=== PATIENT | female | born 1980 | race Caucasian/White ===

== ENCOUNTER → 2024-07-21 | Outpatient (CLI) | payer BC ==
[~2024-07-21] MED LIST: DIPATR PO; PROM25 PO
== END | disposition home or self-care (01) ==
LOC: LAB 07:35 → LAB SHORT 07:35
DX: N72 Inflammatory disease of cervix uteri (principal); N87.9 Dysplasia of cervix uteri, unspecified
CPT/HCPCS: 88305

== ENCOUNTER 2024-08-28 06:00 | Day surgery (SDC) | payer BC ==
[~2024-08-28] VITALS: Ht 165.1 cm; Wt 62.6 kg
[2024-08-28] VITALS (17 sets, daily range): BP systolic 111–134; BP diastolic 64–82
[~2024-08-28 06:00] MED LIST changes: +DIPH50 PO; +FLUO10 PO; +Flonase 0.05% N16 GM; +IBUP200 PO; +MULTI-VITAMIN1 EAC2 PO; +OZEMPIC0.25 MG/02 SQ
[2024-08-28] MEDS ORDERED: CeFAZolin Sodium 2,000 MG in NS 100 ML IV SCH (06:20)
[2024-08-28] MEDS ORDERED: Lactated Ringer's 1,000 ML IV SCH ×2 (06:20→17:30)
--- NOTE | 2024-08-28 06:41 | NUR ---
Ambulatory in Day Surgery History, Chart, Medications and Allergies reviewed before start of procedure. Pre-Op teaching done. Pt verbalizes understanding.
[2024-08-28] MEDS ORDERED: CeFAZolin Sodium 2,000 MG VIAL ONE (06:53)
[2024-08-28] MEDS ORDERED: Bupivacaine 0.5% HCl 5 MG/ML 30MLVIAL ONE (07:02)
[2024-08-28] MEDS ORDERED: Scopolamine Hydrobromide Patch TD SCH (07:10)
[2024-08-28] MEDS ORDERED: Midazolam HCl 1MG / ML 2ML Vial IV SCH (07:20)
[2024-08-28] MEDS ORDERED: Midazolam HCl 1MG / ML 2ML Vial ONE (07:21)
[2024-08-28] MEDS ORDERED: FentaNYL Citrate 50 MCG/ML 2 ML Injection ONE ×3 (07:23→10:29)
[2024-08-28] MEDS ORDERED: Lidocaine HCl 2% 20 ML MDV ONE (07:23)
[2024-08-28] MEDS ORDERED: propofoL 20 ML IV ONE ×2 (07:23→09:43)
[2024-08-28] MEDS ORDERED: Phenylephrine HCl 100 MCG/ML-NS 10MLSYR (1MG/10ML) ONE (07:40)
[2024-08-28] MEDS ORDERED: Rocuronium Bromide 10 MG/ML 5ML Injection IV ONE (08:08)
[2024-08-28] MEDS ORDERED: Ondansetron HCl 2 MG / ML 2ML Vial ONE (08:08)
[2024-08-28] MEDS ORDERED: Dexamethasone Sod Phos 10 MG/ML 1ML VIAL ONE (08:08)
[2024-08-28] MEDS ORDERED: Ketorolac Tromethamine 30mg Vial ONE (09:18)
[2024-08-28] MEDS ORDERED: Sugammadex Sodium 200 MG/2ML SDV (100 MG/ML) ONE (09:43)
[2024-08-28] MEDS ORDERED: HYDROmorphone HCl/Pf 1MG SYR IV PRN (10:00)
[2024-08-28] MEDS ORDERED: FentaNYL Citrate 50 MCG/ML 2 ML Injection IV PRN ×3 (10:00→10:30)
--- NOTE | 2024-08-28 10:02 | NUR ---
08/28/24 1002 Stone,Vianca WESLEY REMOVED END OF CASE 250ML CLEAR URINE, TOLERATED WELL
[2024-08-28] MEDS ORDERED: Droperidol 5 mg/2 ml Vial IV PRN (10:05)
[2024-08-28] MEDS ORDERED: Acetaminophen 500 MG Tab PO PRN ×2 (10:05→10:30)
[2024-08-28] MEDS ORDERED: HYDROmorphone HCl 0.5 MG/0.5 ML SYR IV PRN (10:05)
[2024-08-28] MEDS ORDERED: Ketorolac Tromethamine 30mg Vial IV PRN (10:25)
[2024-08-28] MEDS ORDERED: OxyCODONE HCL 5 MG TAB PO PRN ×2 (10:25→10:35)
[2024-08-28] MEDS ORDERED: FLU VACC TS2024-25(6MOS UP)/PF 45 MCG/0.5 ML SYRINGE IM SCH (10:30)
[2024-08-28] MEDS ORDERED: DiphenhydrAMINE HCL 25 MG Cap PO PRN (10:30)
[2024-08-28] MEDS ORDERED: Metoclopramide HCl 10 MG Tab PO PRN (10:30)
[2024-08-28] MEDS ORDERED: Simethicone 80 MG Chew PO PRN (10:30)
[2024-08-28] MEDS ORDERED: Ondansetron HCl 2 MG / ML 2ML Vial IV PRN (10:30)
[2024-08-28] MEDS ORDERED: Phenazopyridine HCl 100 MG Tab PO ONE (10:35)
--- NOTE | 2024-08-28 11:16 | NUR ---
PT ARRIVED TO THE ROOM FROM PACU AT APPROXIMATELY 1102. PT ALERT/ORIENTED UPON ARRIVAL. PAIN MANAGED. PT REPORTS CONTINUED URGE TO VOID. PT ASSISTED TO THE BATHROOM.
[2024-08-28] MEDS ORDERED: TraMADol HCl 50 MG Tab PO PRN (13:20)
[2024-08-28] MEDS ORDERED: Metoclopramide HCl 5MG / ML 2ML Vial IV PRN (13:20)
--- NOTE | 2024-08-28 19:55 | NUR ---
SHIFT SUMMARY PT IS POD#0 FROM [facility] LAV WITH DR. CARLISLE. PT HAS BEEN NAUSEATED POST-OP, SHE HAS BEEN GIVEN ZOFRAN AND REGLAN FOR NAUSEA. PT HAS TOLERATED A SMALL AMOUNT OF PO FLUIDS AND A FEW BITES OF HER DINNER. 1L BOLUS ORDERED BY DR. CARLISLE AND STARTED. PT HAS BEEN ABLE TO VOID, SHE HAS URINARY FREQUENCY AND URGENCY, PVR INDICATES SHE IS ABLE TO EMPTY HER BLADDER. PAIN HAS BEEN MANAGED WITH TYLENOL, TORADOL AND ULTRAM. PT IS HOPING TO DISCHARGE HOME TONIGHT IF SHE IS ABLE TO MEET CONDITIONS OF DISCHARGE FROM DR. CARLISLE. BEDSIDE REPORT GIVEN TO EDENILSON CARLOS.
[2024-08-28] MEDS ORDERED: Polyethylene Glycol 3350 17 gm PO SCH (20:35)
[2024-08-28] MEDS ORDERED: Sennosides 8.6 MG Tab PO SCH (21:00)
--- NOTE | 2024-08-29 04:24 | NUR ---
SHIFT SUMMARY POD 1 LAP HYSTR. NO ACUTE CHANGES OVERNIGHT. VSS. TOLERATING ORALS, PT REPORTS MIN NAUSEA OVERNIGHT, NO EMESIS. LAP SITE x5 c EXOFIN KAYLAH. ABD BINDER IN PLACE. PT REPORTS PAIN TOLERABLE, MEDICATED PER EMAR. VOIDING c URGENCY, PT REPORTS MIN SPOTTING. IND IN ROOM. ANTICIPATED DISCHARGE LATER TODAY. CALL LIGHT IN REACH, BED IN LOWEST POSITION, WILL REPORT TO DAY RN.
[2024-08-29 05:24] VITALS: BP 109/65
[2024-08-29 07:29] VITALS: BP 111/59
--- NOTE | 2024-08-29 08:11 | NUR ---
dr mendez in to see pt.
[2024-08-29] MEDS ORDERED: Polyethylene Glycol 3350 17 gm PO SCH (09:00)
[2024-08-29 09:15] VITALS: BP 119/72
--- NOTE | 2024-08-29 09:52 | NUR ---
discharged reviewed dc instructions w/pt; verbalized understanding. pt tolerating po, voiding and pain controlled. vss. pt left unit in [place] w/possessions and dc paperwork in hand, accompanied by nadirae.
== END 2024-08-29 09:38 | disposition home or self-care (01) ==
LOC: ORSCMMR 06:00 → ORD 07:30 → SURS 10:49 → ORSCMMR 08-29 09:38
PROVIDERS: Obstetrics & Gynecology
PROC: 0UT9FZZ Resection of Uterus, Via Natural or Artificial Opening With Percutaneous Endoscopic Assistance (ICD-10-PCS; principal; 2024-08-28 07:30)
PROC: 0UT1FZZ Resection of Left Ovary, Via Natural or Artificial Opening With Percutaneous Endoscopic Assistance (ICD-10-PCS; principal; 2024-08-28 07:30)
PROC: 0UT7FZZ Resection of Bilateral Fallopian Tubes, Via Natural or Artificial Opening With Percutaneous Endoscopic Assistance (ICD-10-PCS; principal; 2024-08-28 07:30)
DX: N92.1 Excessive and frequent menstruation with irregular cycle (principal); N80.03 Adenomyosis of the uterus; N80.8 Other endometriosis; N80.102 Endometriosis of left ovary, unspecified depth; N83.292 Other ovarian cyst, left side; N83.8 Other noninflammatory disorders of ovary, fallopian tube and broad ligament; N80.122 Deep endometriosis of left ovary; F41.9 Anxiety disorder, unspecified; Z79.899 Other long term (current) drug therapy
CPT/HCPCS: 86850; 86900; 86901; 88307; A9270; J0690; J1100; J1885; J2250; J2371; J2405; J2704; J2765; J3010; J7120

== ENCOUNTER 2024-09-05 22:24 | Inpatient (IN) | payer BC ==
[~2024-09-05] VITALS: Ht 165.1 cm; Wt 65.6 kg
[2024-09-05] MEDS ORDERED: Ondansetron HCl 2 MG / ML 2ML Vial IV PRN (23:00)
[2024-09-05] MEDS ORDERED: NS 1,000 ML IV SCH (23:05)
[2024-09-05] MEDS ORDERED: Ketorolac Tromethamine 30mg Vial IV ONE (23:05)
[2024-09-05 23:09] LABS: BASOPHILS ABSOLUTE AUTO 0.03 K/mm3 (0.00-0.23); BASOPHILS PERCENT AUTO 0 % (0-2); EOSINOPHILS ABSOLUTE AUTO 0.03 K/mm3 (0.00-0.68); EOSINOPHILS PERCENT AUTO 0 % (0-6); Hematocrit 30.4 % (33.0-51.0); Hemoglobin 10.3 g/dL (11.5-16.0); IMMATURE GRAN ABSOLUTE AUTO 0.09 K/mm3 (0.00-0.10); IMMATURE GRAN PERCENT AUTO 1 % (0-1); LYMPHOCYTES ABSOLUTE AUTO 0.56 K/mm3 (0.84-5.20); LYMPHOCYTES PERCENT AUTO 3 % (21-46); MONOCYTES ABSOLUTE AUTO 1.66 K/mm3 (0.16-1.47); MONOCYTES PERCENT AUTO 9 % (4-13); Mean Corpuscular HGB Conc 33.9 g/dL (31.5-36.5); Mean Corpuscular Volume 83 fL (80-100); Mean Platelet Volume 9.4 fL (9.1-12.4); NEUTROPHILS ABSOLUTE AUTO 16.88 K/mm3 (1.96-9.15); NEUTROPHILS PERCENT AUTO 88 % (41-73); Platelet Count 413 K/mm3 (150-400); RDW Standard Deviation 42.8 fL (35.1-46.3); Red Blood Cell Count 3.68 M/mm3 (3.80-5.20); White Blood Cell Count 19.25 K/mm3 (4.00-11.30)
[2024-09-05 23:31] LABS: Albumin, Blood 3.2 g/dL (3.4-5.0); Albumin/Globulin Ratio 0.8 (0.8-1.8); Bilirubin, Total 0.4 mg/dL (0.1-1.0); Bun/Creatinine Ratio 20.5 (12.0-20.0); Calcium, Blood 9.1 mg/dL (8.5-10.1); Creatinine, Blood 0.59 mg/dL (0.40-1.00); Globulin, Blood 4.1 g/dL (2.2-4.0); Potassium, Blood 3.5 mmol/L (3.5-5.5); Total Protein, Blood 7.3 g/dL (6.4-8.2)
[2024-09-05 23:46] LABS: Influenza A, PCR NEGATIVE (NEGATIVE); Influenza B, PCR NEGATIVE (NEGATIVE); Resp Syncytial Virus, PCR NEGATIVE (NEGATIVE); SARS-Cov-2 (COVID-19) PCR, MMC NEGATIVE (NEGATIVE)
[2024-09-06 00:36] LABS: Source, Urine Clean Catch
[2024-09-06 00:57] LABS: Appearance, Urine Hazy (Clear); Bilirubin, Urine Neg (Neg); Blood, Urine Neg (Neg); Color, Urine Yellow (P-Yellow); Glucose Qualitative, Urine Neg (Neg); Ketones, Urine 1+ (Neg); Leukocyte Esterase, Urine 1+ (Neg); Nitrite, Urine Neg (Neg); Protein, Urine 2+ (Neg); Specific Gravity, Urine 1.015 (1.003-1.022); Urobilinogen, Urine 2+ (Normal)
[2024-09-06 01:28] LABS: Bacteria Mod /hpf; Mucus Light (0-Heavy); Red Blood Cells, Urine 0-2 /hpf (0-2); Squamous Epithelial Cells Mod /hpf (Few)
[2024-09-06] MEDS ORDERED: Piperacillin/Tazobactam Sod 3.375 GM in NS 100 ML IV ONE (01:45)
[2024-09-06] MEDS ORDERED: MetroNIDAZOLE 500MG/NS 100 ml 100 ML IV ONE (01:45)
[2024-09-06] MEDS ORDERED: Ondansetron HCl 2 MG / ML 2ML Vial IV PRN (02:25)
[2024-09-06] MEDS ORDERED: TraMADol HCl 50 MG Tab PO PRN ×2 (02:25→12:40)
[2024-09-06] MEDS ORDERED: FLU VACC TS2024-25(6MOS UP)/PF 45 MCG/0.5 ML SYRINGE IM ONE (02:30)
[2024-09-06] MEDS ORDERED: Acetaminophen 325 MG TABLET PO PRN (02:30)
[2024-09-06] MEDS ORDERED: Ketorolac Tromethamine 15mg Vial IV PRN (02:45)
[2024-09-06] MEDS ORDERED: Lactated Ringer's 1,000 ML IV SCH ×2 (03:00→08:00)
[2024-09-06 03:28] VITALS: BP 111/63
[2024-09-06] MEDS ORDERED: ACET500 PO (03:37)
[2024-09-06] MEDS ORDERED: DOCU100 PO (03:37)
[2024-09-06] MEDS ORDERED: MIRALAX17 GM PO (03:38)
[2024-09-06] MEDS ORDERED: HYDPAM25 PO (03:41)
[2024-09-06 03:56] LABS: BASOPHILS ABSOLUTE AUTO 0.06 K/mm3 (0.00-0.23); BASOPHILS PERCENT AUTO 0 % (0-2); EOSINOPHILS ABSOLUTE AUTO 0.01 K/mm3 (0.00-0.68); EOSINOPHILS PERCENT AUTO 0 % (0-6); Hematocrit 28.9 % (33.0-51.0); Hemoglobin 9.7 g/dL (11.5-16.0); IMMATURE GRAN ABSOLUTE AUTO 0.15 K/mm3 (0.00-0.10); IMMATURE GRAN PERCENT AUTO 1 % (0-1); LYMPHOCYTES ABSOLUTE AUTO 1.23 K/mm3 (0.84-5.20); LYMPHOCYTES PERCENT AUTO 5 % (21-46); MONOCYTES ABSOLUTE AUTO 1.92 K/mm3 (0.16-1.47); MONOCYTES PERCENT AUTO 8 % (4-13); Mean Corpuscular HGB 28.4 pg (26.0-34.0); Mean Corpuscular HGB Conc 33.6 g/dL (31.5-36.5); Mean Corpuscular Volume 85 fL (80-100); Mean Platelet Volume 9.5 fL (9.1-12.4); NEUTROPHILS ABSOLUTE AUTO 21.01 K/mm3 (1.96-9.15); NEUTROPHILS PERCENT AUTO 86 % (41-73); Platelet Count 395 K/mm3 (150-400); RDW Coefficient Variation 14.1 % (11.7-14.2); Red Blood Cell Count 3.41 M/mm3 (3.80-5.20); White Blood Cell Count 24.38 K/mm3 (4.00-11.30)
[2024-09-06 04:32] LABS: Albumin, Blood 2.8 g/dL (3.4-5.0); Albumin/Globulin Ratio 0.7 (0.8-1.8); Bilirubin, Total 0.8 mg/dL (0.1-1.0); Bun/Creatinine Ratio 15.5 (12.0-20.0); Calcium, Blood 8.6 mg/dL (8.5-10.1); Creatinine, Blood 0.71 mg/dL (0.40-1.00); Globulin, Blood 3.8 g/dL (2.2-4.0); Potassium, Blood 3.6 mmol/L (3.5-5.5); Total Protein, Blood 6.6 g/dL (6.4-8.2)
[2024-09-06] MEDS ORDERED: NS 500 ML IV SCH (04:45)
[2024-09-06] MEDS ORDERED: Piperacillin/Tazobactam Sod 3.375 GM in NS 100 ML IV SCH (06:00)
--- NOTE | 2024-09-06 06:48 | NUR ---
0315 PT ARRIVED TO ROOM BY ER STRETCHER. PT AOX4 AND ABLE TO TRANSFER TO BED WITH SBA. PT ORIENTED TO ROOM AND CALL LIGHT AND VERBALIZED UNDERSTANDING OF ORIENTATION. ADMIT COMPLETED AND MEDLIST AND ALLERGY LIST UPDATED. PT STATES SHE IS NOT ALLERGIC TO IODINE OR CT CONTRAST BUT IS ALLERGIC TO MRI CONTRAST "ONE THAT STARTED WITH A G". VERIFIED WITH PT X2 THAT IT WAS DURING AN MRI AND NOT CT THAT SHE HAD A HIVE TYPE RXN TO CONTRAST. PT AFFIRMS THAT IS WAS MRI. PT AMBULATED TO BR INDEPENDENTLY AND DID HAVE A SMALL MEASURED VOID OF 100ML. PT HAS BEEN MADE NPO STATUS DURING ADMIT, EXCEPT FOR SIPS TO TAKE PO MEDICATION. PT WAS MEDICATED WITH TYLENOL FOR PAIN. IV FLUIDS LR @125ML/HR INFUSING INTO RIGHT HAND IV. UNABLE TO CALL FOR CONSULT OF PT PRIMARY OB-MANAGER HYDRAULIC D/T NO ANSWERING SERVICE, THIS WILL BE RELAYED TO ONCOMING SHIFT TO CONTACT PROVIDER WHEN OFFICE OPENS.
[2024-09-06 07:54] VITALS: BP 98/64
[2024-09-06] MEDS ORDERED: Lactobacil 2-S.Thermo-Bifido 1 1 Cap PO SCH (09:00)
[2024-09-06 10:13] LABS: BASOPHILS ABSOLUTE AUTO 0.05 K/mm3 (0.00-0.23); BASOPHILS PERCENT AUTO 0 % (0-2); EOSINOPHILS ABSOLUTE AUTO 0.04 K/mm3 (0.00-0.68); EOSINOPHILS PERCENT AUTO 0 % (0-6); IMMATURE GRAN ABSOLUTE AUTO 0.15 K/mm3 (0.00-0.10); IMMATURE GRAN PERCENT AUTO 1 % (0-1); LYMPHOCYTES ABSOLUTE AUTO 1.48 K/mm3 (0.84-5.20); LYMPHOCYTES PERCENT AUTO 6 % (21-46); MONOCYTES ABSOLUTE AUTO 2.09 K/mm3 (0.16-1.47); MONOCYTES PERCENT AUTO 9 % (4-13); Mean Corpuscular HGB 29.2 pg (26.0-34.0); Mean Corpuscular HGB Conc 34.6 g/dL (31.5-36.5); Mean Corpuscular Volume 84 fL (80-100); Mean Platelet Volume 9.4 fL (9.1-12.4); NEUTROPHILS ABSOLUTE AUTO 19.51 K/mm3 (1.96-9.15); NEUTROPHILS PERCENT AUTO 84 % (41-73); Platelet Count 351 K/mm3 (150-400); RDW Coefficient Variation 14.2 % (11.7-14.2); RDW Standard Deviation 43.9 fL (35.1-46.3); Red Blood Cell Count 3.08 M/mm3 (3.80-5.20); White Blood Cell Count 23.32 K/mm3 (4.00-11.30)
[2024-09-06 11:30] VITALS: BP 105/77
[2024-09-06] MEDS ORDERED: Gabapentin 300 MG Cap PO ONE (12:30)
--- NOTE | 2024-09-06 13:00 | NUR ---
HANDOFF SUMMARY PATENT IS AOX4 ABLE TO MAKE HER NEEDS KNOWN. BP RUNS SOFT HOSPITALIST ORDERED TO INCREASE CONTINUOUS FLUIDS TO 150MLS/HR. SHE DOES COMPLAIN OF ABD PAIN AND TENDERNESS TREATED WITH HER PRN MEDICATIONS. HER LAP SITES ARE INTACT WITH NO REDNESS SHE IS INDEPENDENT TO THE RESTROOM. DR. CARLISLE AWARE OF THE DROP IN BLOOD COUNT AND ORDERED A RECHECK FOR THE AFTERNOON. REPORT WAS GIVEN TO ANOTHER DAY SHIFT NURSE AND ALL QUESTIONS ANSWERED.
[2024-09-06 15:39] VITALS: BP 106/63
[2024-09-06 16:24] LABS: BASOPHILS ABSOLUTE AUTO 0.07 K/mm3 (0.00-0.23); BASOPHILS PERCENT AUTO 0 % (0-2); EOSINOPHILS ABSOLUTE AUTO 0.06 K/mm3 (0.00-0.68); EOSINOPHILS PERCENT AUTO 0 % (0-6); Hematocrit 26.6 % (33.0-51.0); Hemoglobin 8.9 g/dL (11.5-16.0); IMMATURE GRAN ABSOLUTE AUTO 0.09 K/mm3 (0.00-0.10); IMMATURE GRAN PERCENT AUTO 0 % (0-1); LYMPHOCYTES ABSOLUTE AUTO 1.98 K/mm3 (0.84-5.20); LYMPHOCYTES PERCENT AUTO 8 % (21-46); MONOCYTES ABSOLUTE AUTO 1.76 K/mm3 (0.16-1.47); MONOCYTES PERCENT AUTO 7 % (4-13); Mean Corpuscular HGB 28.3 pg (26.0-34.0); Mean Corpuscular HGB Conc 33.5 g/dL (31.5-36.5); Mean Corpuscular Volume 85 fL (80-100); Mean Platelet Volume 9.5 fL (9.1-12.4); NEUTROPHILS ABSOLUTE AUTO 20.69 K/mm3 (1.96-9.15); NEUTROPHILS PERCENT AUTO 84 % (41-73); Platelet Count 391 K/mm3 (150-400); RDW Coefficient Variation 14.3 % (11.7-14.2); RDW Standard Deviation 44.3 fL (35.1-46.3); Red Blood Cell Count 3.14 M/mm3 (3.80-5.20); White Blood Cell Count 24.65 K/mm3 (4.00-11.30)
--- NOTE | 2024-09-06 16:35 | NUR ---
TRANSFER TO 219 PT A&Ox4, CALLS AND COMMUNICATES NEEDS APPROPRIATELY. IND IN ROOM. BP STABLE, SR-ST 90-100's, DENIES CP/PRESSURE. SpO2> 92% RA, DENIES SOB. MANAGED PAIN PER EMAR. LAP SITES WNL. PT REPORTS MILD SPOTTING. REPORT GIVEN TO SURGICAL FLOOR RN. FAMILY NOTIFIED OF TRANSFER. PT TRANSFERED VIA WHEELCHAIR WITH ALL PT BELONGINGS AT APPROXIMATELY 1620.
--- NOTE | 2024-09-06 17:36 | NUR ---
REPORT FROM LARISA MACKU RN, PATIENT IS AOX4, IND IN ROOM HERE FOR IV ABX, MEDICATED WITH TYLENOL FOR PAIN. DENIES N/V. NO ACUTE EVENTS VSS. CALL LIGHT IN REACH.
[2024-09-06] MEDS ORDERED: NS 500 ML IV PRN (19:10)
[2024-09-06] MEDS ORDERED: NS 250 ML IV PRN (19:10)
[2024-09-06 20:38] VITALS: BP 107/62
[2024-09-06] MEDS ORDERED: Gabapentin 300 MG Cap PO SCH (21:00)
[2024-09-06 22:49] LABS: BASOPHILS ABSOLUTE AUTO 0.05 K/mm3 (0.00-0.23); BASOPHILS PERCENT AUTO 0 % (0-2); EOSINOPHILS ABSOLUTE AUTO 0.09 K/mm3 (0.00-0.68); EOSINOPHILS PERCENT AUTO 1 % (0-6); Hematocrit 23.5 % (33.0-51.0); IMMATURE GRAN ABSOLUTE AUTO 0.07 K/mm3 (0.00-0.10); IMMATURE GRAN PERCENT AUTO 0 % (0-1); LYMPHOCYTES ABSOLUTE AUTO 1.89 K/mm3 (0.84-5.20); LYMPHOCYTES PERCENT AUTO 10 % (21-46); MONOCYTES PERCENT AUTO 7 % (4-13); Mean Corpuscular HGB 28.6 pg (26.0-34.0); Mean Corpuscular Volume 84 fL (80-100); Mean Platelet Volume 9.3 fL (9.1-12.4); NEUTROPHILS ABSOLUTE AUTO 16.08 K/mm3 (1.96-9.15); NEUTROPHILS PERCENT AUTO 82 % (41-73); Platelet Count 325 K/mm3 (150-400); RDW Coefficient Variation 14.3 % (11.7-14.2); RDW Standard Deviation 44.3 fL (35.1-46.3); White Blood Cell Count 19.58 K/mm3 (4.00-11.30)
--- NOTE | 2024-09-07 01:28 | NUR ---
PROVIDER UPDATE PT C/O INSOMNIA, REPORTS TAKING BENADRYL AT HOME PRN AND REQUESTING THIS MEDICATION AT THIS TIME. PROVIDER NOTIFIED, NEW ORDER OBTAINED. WILL MEDICATE DIRECTED, SEE EMAR.
[2024-09-07] MEDS ORDERED: DiphenhydrAMINE HCL 25 MG Cap PO PRN (01:30)
[2024-09-07 06:07] LABS: BASOPHILS ABSOLUTE AUTO 0.04 K/mm3 (0.00-0.23); BASOPHILS PERCENT AUTO 0 % (0-2); EOSINOPHILS ABSOLUTE AUTO 0.12 K/mm3 (0.00-0.68); EOSINOPHILS PERCENT AUTO 1 % (0-6); Hematocrit 24.5 % (33.0-51.0); Hemoglobin 8.2 g/dL (11.5-16.0); IMMATURE GRAN ABSOLUTE AUTO 0.08 K/mm3 (0.00-0.10); IMMATURE GRAN PERCENT AUTO 0 % (0-1); LYMPHOCYTES PERCENT AUTO 9 % (21-46); MONOCYTES ABSOLUTE AUTO 1.19 K/mm3 (0.16-1.47); MONOCYTES PERCENT AUTO 6 % (4-13); Mean Corpuscular HGB 28.2 pg (26.0-34.0); Mean Corpuscular HGB Conc 33.5 g/dL (31.5-36.5); Mean Corpuscular Volume 84 fL (80-100); Mean Platelet Volume 9.5 fL (9.1-12.4); NEUTROPHILS ABSOLUTE AUTO 15.61 K/mm3 (1.96-9.15); NEUTROPHILS PERCENT AUTO 83 % (41-73); Platelet Count 356 K/mm3 (150-400); RDW Coefficient Variation 14.3 % (11.7-14.2); RDW Standard Deviation 44.5 fL (35.1-46.3); Red Blood Cell Count 2.91 M/mm3 (3.80-5.20); White Blood Cell Count 18.74 K/mm3 (4.00-11.30)
--- NOTE | 2024-09-07 06:40 | NUR ---
PATIENT IS AWAKE, ALERT AND ORIENTED. iNDEPENDENT IN ROOM, STEADY ON FEET. SL NOTED TO RIGHT WRIST, FLUSHED/PATENT. VS AFEBRILE. ABDOMEN WITH 5 SMALL INCISIONS, HEALING WELL, WELL APPROXIMATED, CLOSED WITH NO REDDNESS OR DRAINAGE. PER REPORT PATIENT STARTED HAVING VAGINAL DRAINAGE THAT HAD A FOUL SMELL AND WAS YELLOW SERO/SANG IN COLOR NOW BROWISH/YELLOW PER PATIENT. PT WEARING PADS. DR WANTS TO KNOW HOW MANY PADS, COLOR AND AMOUNT OF DRAINAGE. PATIENT HAD 4 PADS, 3 OF THOSE PADS HAS VERY SCANT AMT OF DRAINAGE. THE ONE THIS AM HAD A MODERATE AMOUNT LIGHT BROWN/ YELLOWISH IN COLOR. PATIENT DOES NOT LIKE THE FOUL SMELL SO CHANGES EVEN IF AMOUNT IS MINIMAL. WBC DOWN FROM LAST ONE ON DAY SHIFT. PT HAS A CT SCHEDULED FOR TOMORROW. PATIENT VOIDING ADEQUATE AMOUNTS. THIS AM URINE CONCENTRATED 200ML WITH SEDIMENT OR POSSIBILY DRAINAGE. PAIN CONTROLLED WITH TORADOALIVP & NEURONTIN PO. NS 500 ML TKO INFUSED THIS SHIFT. DENIES N/V. BT'S POSITIVE. LS CLEAR T/O. NO FEVER T/O NOC. 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 ENCOURAGED PT TO PUSH PO FLUIDS.
[2024-09-07 07:25] VITALS: BP 113/74
[2024-09-07] MEDS ORDERED: Polyethylene Glycol 3350 17 gm PO PRN (09:35)
[2024-09-07 12:00] VITALS: BP 102/62
[2024-09-07] MEDS ORDERED: Sod Ferric Gluc Complx/Sucrose 125 MG in NS 100 ML IV SCH (14:12)
[2024-09-07 14:43] VITALS: BP 104/65
--- NOTE | 2024-09-07 16:16 | NUR ---
SHIFT SUMMARY NO ACUTE CHANGES TODAY. PT ABD CRAMPING INCREASES WITH MOVEMENT. TORADOL PRN. PT CONTINUES TO HAVE SMALL AMOUNTS OF FOUL BEAN/BROWN VAGINAL DRAINAGE. PLAN TO COLLECT CXS WHEN ABLE. INDEP TO RESTROOM. IV ABX PER ORDERS. VSS. PLAN FOR LABS + CT SCAN TOMORROW. CALL LIGHT WITHIN REACH.
[2024-09-07 19:23] LABS: Bacterial Vaginosis PCR Negative (NEGATIVE); Candida Group, PCR NOT DETECTED (NOT DETECT); Candida glabrata-krusei, PCR NOT DETECTED (NOT DETECT)
[2024-09-07 20:05] VITALS: BP 113/63
[2024-09-07] MEDS ORDERED: Docusate Sodium 100 MG Cap PO SCH (21:00)
[2024-09-07 23:54] VITALS: BP 116/69
[2024-09-08] MEDS ORDERED: NS 250 ML IV PRN (02:15)
[2024-09-08 02:27] VITALS: BP 109/63
--- NOTE | 2024-09-08 02:56 | NUR ---
[id number] PATIENT ASKED FOR NEW IV SL. REPORTED PAIN WITH IV CVONTRAST DURING LAST CT SCAN WITH SL RIGHT HAND AND PT IS SCHEDULED FOR ANOTHER CT SCAN TOMORROW. SEVERAL ATTEMPTS WERE MADE BY 3 DIFFERENT RN'S ALL WERE UNSUCCESSFUL. ATTEMPTS MADE BY THIS RN X3, MALIKA RN PCU X2 WITH SECOND DONE WITH US AND LATER INFILTRATED. THEATRICAL SCENIC DESIGNER ATTEMPTED A PERIPERAL IV RT FA WAS UNSUCCESSFUL X1. THEN THEATRICAL SCENIC DESIGNER PLACED A POWER GLIDE TO RIGHT UPPER ARM SUCCESSFULLY. POSTED POWER GLIDE SIGN IV OUTSIDE PT'S ROOM.
--- NOTE | 2024-09-08 03:43 | NUR ---
SHIFT SUMMARY: PATIENT WAS TIRED AT START OF SHIFT FROM TAKING A SHOWER IN AM, INDEPENDENTLY WALKING THE HALLS, HAD A LOT OF COMPANY T/O DAY. SCHEDULED MEDICATIONS GIVEN ORDERED OR PRN PER PATIENT REQUEST. PAIN CONTROLED BY GABAPENTIM PO AND TORADOL IV PRN, ONLY HAD X1 THIS SHIFT. PATIENT WANTED NEW IV PRIOR TO CT IN AM. REPORTS RT HAND SL IS TENDER AND WAS PAINFUL WITH CONTRAST GIVEN DURING LAST CT SCAN. SEVERAL ATTEMPTS WERE MADE BY 3 RNS, SEE IV ASSESSMENTS. ULTIMATELY POWER GLIDE PLACED UPPER RT ARM BY GINO CARLOS ICU. SIGN ON DOOR REGUARDING POWER GLIDER. RN'S TO DRAW LABS IN AM AND GIVE TO LAB. PATIENT CONTINUES TO BE INDEPENDENT IN ROOM. KNOWLEDGEABLE WITH MEDICATION & PROCEDURES. PAIN CONTROLLED. INCISIONS HEALING. NO N/V. TOLERATING REGULAR DIET. VOIDING ADEQUATE AMOUNT OF URINE. MINIMAL VAGINAL DRAINAGE. PATIENT DOES NOT TOLERATE THE FOUL ODOR OF DRAINAGE AND KEEPS ESSENTIAL OIL PATCHES IN VARIOUS SPOTS, CHANGES PAD FREQUENTLY. TELE IN PLACE. AFEBRILE T/O NOC. WILL GIVE REPORT TO ONCOMING RN TAKING PATIENT AT 0700. WILL UPDATE SHIFT SUMMARY IF ANY CHANGES TRANSPIRE FROM ABOVE ASSESSMENT FROM NOW UNTIL 0700.
[2024-09-08 04:57] LABS: BASOPHILS ABSOLUTE AUTO 0.03 K/mm3 (0.00-0.23); BASOPHILS PERCENT AUTO 0 % (0-2); EOSINOPHILS ABSOLUTE AUTO 0.12 K/mm3 (0.00-0.68); EOSINOPHILS PERCENT AUTO 1 % (0-6); Hematocrit 22.7 % (33.0-51.0); Hemoglobin 7.6 g/dL (11.5-16.0); IMMATURE GRAN ABSOLUTE AUTO 0.05 K/mm3 (0.00-0.10); IMMATURE GRAN PERCENT AUTO 0 % (0-1); LYMPHOCYTES ABSOLUTE AUTO 2.35 K/mm3 (0.84-5.20); LYMPHOCYTES PERCENT AUTO 21 % (21-46); MONOCYTES ABSOLUTE AUTO 0.79 K/mm3 (0.16-1.47); MONOCYTES PERCENT AUTO 7 % (4-13); Mean Corpuscular HGB 28.4 pg (26.0-34.0); Mean Corpuscular HGB Conc 33.5 g/dL (31.5-36.5); Mean Corpuscular Volume 85 fL (80-100); Mean Platelet Volume 9.6 fL (9.1-12.4); NEUTROPHILS ABSOLUTE AUTO 7.98 K/mm3 (1.96-9.15); NEUTROPHILS PERCENT AUTO 70 % (41-73); Platelet Count 377 K/mm3 (150-400); RDW Coefficient Variation 14.5 % (11.7-14.2); Red Blood Cell Count 2.68 M/mm3 (3.80-5.20); White Blood Cell Count 11.32 K/mm3 (4.00-11.30)
[2024-09-08 07:08] VITALS: BP 98/62
--- NOTE | 2024-09-08 10:13 | NUR ---
CT: PT TO IMAGING AT THIS TIME. POSSIBLE DC HOME IF RESULTS ARE IMPROVED.
[2024-09-08] MEDS ORDERED: FentaNYL Citrate 50 MCG/ML 2 ML Injection IV PRN (13:00)
[2024-09-08] MEDS ORDERED: LevoFLOXacin 750 MG Tab PO SCH (16:00)
[2024-09-08] MEDS ORDERED: MetroNIDAZOLE 500 MG Tab PO SCH (16:00)
--- NOTE | 2024-09-08 16:42 | NUR ---
SHIFT SUMMARY PT IS A/OX4, IND IN ROOM. TOLERATING REG DIET, VOIDING, AMBULATING. DR. CARLISLE PERFORMED VAGINAL EXAM AT BEDSIDE. SCANT BROWN VAGINAL DISCHARGE AFTER PROCEDURE BY DR. CARLISLE. PT REPORTS NO INCREASE IN PAIN AFTER PROCEDURE. VSS. POSSIBLE D/C TOMORROW AND CT ON WEDNESDAY. PT CURRENTLY RESTING IN ROOM W/ CALL LIGHT IN REACH.
[2024-09-08 16:55] VITALS: BP 109/74
[2024-09-08 19:48] VITALS: BP 120/75
[2024-09-09 05:22] VITALS: BP 112/68
--- NOTE | 2024-09-09 05:35 | NUR ---
SHIFT SUMMARY NO ACUTE CHANGES T/O SHIFT. PT REPORTS "SLEEPING WELL AND FEELING MUCH BETTER THIS MORNING." SCANT SS DRAINAGE, ONLY CHANGING ONE MISTI PAD THIS SHIFT. STATES MIN PAIN, MANAGED WITH TYLENOL AND TORADOL. PT IS VOIDING AND BISI PO INTAKE. VSS. DENIES N/V. IS IND IN ROOM. EXTENDED DWELL TO SHELIA PATENT/SL. PT AWAKE AT THIS TIME DRINKING HOT TEA IN BED. DENIES NEEDS. HAS CALL LIGHT IN REACH AND ABLE TO MAKE NEEDS KNOWN. IS HOPEFUL FOR D/C TODAY. WILL GIVE REPORT TO ONCOMING RN.
[2024-09-09 07:47] VITALS: BP 109/58
[2024-09-09 09:07] LABS: Hematocrit 24.8 % (33.0-51.0); Hemoglobin 8.4 g/dL (11.5-16.0); Mean Corpuscular HGB 28.4 pg (26.0-34.0); Mean Corpuscular HGB Conc 33.9 g/dL (31.5-36.5); Mean Corpuscular Volume 84 fL (80-100); Mean Platelet Volume 9.5 fL (9.1-12.4); Platelet Count 477 K/mm3 (150-400); RDW Coefficient Variation 14.4 % (11.7-14.2); RDW Standard Deviation 44.1 fL (35.1-46.3); Red Blood Cell Count 2.96 M/mm3 (3.80-5.20); White Blood Cell Count 11.56 K/mm3 (4.00-11.30)
[2024-09-09 09:44] LABS: BASOPHILS PERCENT MAN 0 % (0-2); EOSINOPHILS ABSOLUTE MAN 0.23 K/mm3 (0.00-0.68); EOSINOPHILS PERCENT MAN 2 % (0-6); LYMPHOCYTES ABSOLUTE MAN 2.42 K/mm3 (0.84-5.20); LYMPHOCYTES PERCENT MAN 21 % (21-46); MONOCYTES PERCENT MAN 7 % (4-13); NEUTROPHILS ABSOLUTE MAN 8.09 K/mm3 (1.96-9.15); SEG NEUTROPHILS PERCENT MAN 70 % (41-73); TOTAL CELLS COUNTED 100
[2024-09-09] MEDS ORDERED: Levaquin750 MG PO (12:13)
[2024-09-09] MEDS ORDERED: GABA300 PO (12:13)
[2024-09-09] MEDS ORDERED: METR500 PO (12:14)
[2024-09-09] MEDS ORDERED: TRAM50 PO (12:16)
[2024-09-09] MEDS ORDERED: VISBIOME 112.51 EACH PO (12:20)
--- NOTE | 2024-09-09 12:42 | NUR ---
DISCHARGE NOTE THIS RN ASSUMED CARE AT APPROX 0715. PATIENT ALERT AND ORIENTED X4. INDEPEDENT IN ROOM. TELEMETRY SHOWING SINUS BBB 70s PRIOR TO REMOVAL. SBP 100s. MAP >65. DENIES CHEST PAIN, PRESSURE. IRON INFUSION COMPLETED THIS MORNING PER EMAR. ON ROOM AIR, SATs >90%. RR EVEN, UNLABORED. REPORTS SCANT VAGINAL DISCHARGE. X5 LAP SITES C/D/I - HEALING WELL. MANAGING WITH PAIN WITH PRESCRIBED THERAPY. VOIDING. OLER ROUNDING THIS MORNING - DC HOME ORDERED. IV REMOVED. WRITTEN AND ORAL DC EDUCATION PROVIDED - PATIENT STATES UNDERSTANDING. DC HOME VIA AT APPROX 1240. PERSONAL BELONGINGS WITH PATIENT.
== END 2024-09-09 12:45 | disposition home or self-care (01) | DRG 862 ==
LOC: ER 22:24 → PCU 09-06 02:23 → SURS 09-06 16:20
PROVIDERS: Emergency Medicine; Obstetrics & Gynecology; ADMIT Student in an Organized Health Care Education/Training Program
DX: T81.41XA Infection following a procedure, superficial incisional surgical site, initial encounter (principal); A41.9 Sepsis, unspecified organism; D62 Acute posthemorrhagic anemia; N39.0 Urinary tract infection, site not specified; N73.9 Female pelvic inflammatory disease, unspecified; G43.909 Migraine, unspecified, not intractable, without status migrainosus; B95.8 Unspecified staphylococcus as the cause of diseases classified elsewhere; K66.8 Other specified disorders of peritoneum; Z90.710 Acquired absence of both cervix and uterus; Z90.722 Acquired absence of ovaries, bilateral; Z90.79 Acquired absence of other genital organ(s); Z98.890 Other specified postprocedural states; Z87.891 Personal history of nicotine dependence; Z88.8 Allergy status to other drugs, medicaments and biological substances; Z79.899 Other long term (current) drug therapy; Z91.041 Radiographic dye allergy status
CPT/HCPCS: 0241U; 36415; 71045; 74176; 74177; 80053; 81001; 81515; 82947; 83605; 83735; 85025; 87040; 87070; 87075; 87076; 87077; 87086; 87185; 87186; 87205; 96365; 96375; 99285-25; A9270; C1751; J1885; J2405; J2543; J2916; J3010; J7030; J7040; J7050; J7120; Q9967